=== PATIENT | female | born 1995 | race Caucasian/White ===

== ENCOUNTER 2020-11-26 08:37 | Day surgery (SDC) | payer OTHER ==
[2020-11-19 11:07] LABS: BASOPHILS % (AUTO) 0.6 % (0-1); EOSINOPHILS # (AUTO) 0.1 X10'3 (0-0.9); EOSINOPHILS % (AUTO) 1.3 % (0-6); LYMPHOCYTES # (AUTO) 1.7 X10'3 (1.1-4.8); LYMPHOCYTES % (AUTO) 22.2 % (21-51); MEAN CORPUSCULAR HEMOGLOBIN 29.2 PG (27.0-31.0); MEAN CORPUSCULAR HGB CONC 34.2 g/dL (33.0-36.5); MEAN CORPUSCULAR VOLUME 85.5 FL (78-98); MEAN PLATELET VOLUME 6.9 FL (7.4-10.4); MONOCYTES # (AUTO) 0.4 X10'3 (0-0.9); MONOCYTES % (AUTO) 5.4 % (2-12); NEUTROPHILS # (AUTO) 5.5 X10'3 (1.8-7.7); NEUTROPHILS % (AUTO) 70.5 % (42-75); PRE OP HEMATOCRIT 37.3 % (35.0-45.0); PRE OP HEMOGLOBIN 12.7 g/dL (12.0-16.0); PRE OP PLATELET COUNT 446 X10'3 (140-440); RED BLOOD COUNT 4.36 X10'6 (4.20-5.60); RED CELL DISTRIBUTION WIDTH 13.3 % (11.5-14.5)
[2020-11-19 11:24] LABS: ALANINE AMINOTRANSFERASE 29 U/L (12-78); ALBUMIN 3.9 G/DL (3.4-5.0); ALKALINE PHOSPHATASE 90 IU/L (46-116); ANION GAP 8 (8-16); ASPARTATE AMINO TRANSFERASE 16 U/L (10-37); BETA HCG,QUANTITATIVE < 1.0 mIU/ml; BILIRUBIN,TOTAL 0.5 MG/DL (0.1-1.0); BLOOD UREA NITROGEN 13 MG/DL (7-18); BUN/CREATININE RATIO 18.8 (6.6-38.0); CALCIUM 9.2 MG/DL (8.5-10.1); CHLORIDE 104 MMOL/L (99-107); CREATININE 0.69 MG/DL (0.40-0.90); GLUCOSE 84 MG/DL (70-104); SODIUM 142 MMOL/L (135-145); TOTAL CARBON DIOXIDE 30.1 MMOL/L (24-32); TOTAL PROTEIN 7.9 G/DL (6.4-8.2); eGFR > 90 ML/MIN
[~2020-11-26] VITALS: Ht 165.1 cm; Wt 97.5 kg
[2020-11-26] VITALS (8 sets, daily range): BP systolic 114–128; BP diastolic 68–91
[~2020-11-26 08:37] MED LIST: CHOL20004 PO; INDOCYANINE GREEN 25 MG/10 ML VIAL IV ONE; SYN0.088T PO; ceFAZolin 2gm in dextrose, iso 50 ML IV ONE; famotidine 20mg tablet PO ONE; ringers solution, lacted 1,000 ML IV SCH
[2020-11-26] MEDS ORDERED: morphine 4 MG/ML inj SYRINge IV PRN (09:15)
[2020-11-26] MEDS ORDERED: fentaNYL/PF 50MCG/1 ML 2ML syringe IV PRN ×2 (09:15)
[2020-11-26] MEDS ORDERED: labetalol 20mg/4ml (5mg/ml) syringe IV PRN (09:15)
[2020-11-26] MEDS ORDERED: ringers solution, lacted 1,000 ML IV SCH (09:15)
[2020-11-26] MEDS ORDERED: morphine 2 MG/ML inj. syringe IV PRN (09:15)
[2020-11-26] MEDS ORDERED: ondansetron/PF 4mg/2ml inj IV PRN (09:15)
[2020-11-26] MEDS ORDERED: hydrALAZINE 20mg/ml inj. IV PRN (09:15)
[2020-11-26] MEDS ORDERED: LIDOcaine 1% 30ml preserv. free vial ONE (10:53)
[2020-11-26] MEDS ORDERED: BUPIVAcaine/PF 2.5 mg/ml (0.25%) 30ml vial ONE (10:53)
[2020-11-26] MEDS ORDERED: fentaNYL/PF 50MCG/1 ML 2ML syringe ONE (11:02)
[2020-11-26] MEDS ORDERED: midazolam 2 mg/2 ml injection ONE (11:03)
[2020-11-26] MEDS ORDERED: LIDOcaine 2% (20mg/ml) 5ml vial ONE (11:11)
[2020-11-26] MEDS ORDERED: rocuronium 10mg/ml inj IV ONE (11:12)
[2020-11-26] MEDS ORDERED: propofol inj 20 ML IV ONE (11:12)
[2020-11-26] MEDS ORDERED: ondansetron/PF 4mg/2ml inj ONE (11:13)
[2020-11-26] MEDS ORDERED: dexamethasone sod phosphate 4mg/ml inj. ONE (11:14)
[2020-11-26] MEDS ORDERED: glycopyrrolate 0.2mg/ml inj ONE (11:15)
--- NOTE | 2020-11-26 12:15 | NUR ---
Received from OR via [facility] , accompanied by Anesthesiologist DR VALDEZ and report given by Anesthesiolgist. PATIENT AWAKE AND PLEASANT, NO C/O PAIN, DENIES N/V, V/S WNL, NEUROVASCULAR CHECKS INTACT, 20G PIV L WRIST, SCD ON, 3 BANDAIDS TO LAP SITES OF ABDOMEN-NO DRAINAGE, CDI.
[2020-11-26] MEDS ORDERED: HYDROcodone/acetaminophen 5mg/325mg tablet PO PRN (12:25)
[2020-11-26] MEDS ORDERED: HYDROcodone/acetaminophen 10/325mg tab PO PRN (12:25)
--- NOTE | 2020-11-26 13:25 | NUR ---
PATIENT A&OX4, DENIES PAIN, V/S WNL, NEUROVASCULAR CHECKS INTACT, 20G PIV LUE D/C, SCDS OFF, 3 BANDAIDS TO LAP SITES OF ABDOMEN-CDI. I HAVE REVIEWED D/C INSTRUCTIONS WITH PATIENT AND HAS VERBALIZED UNDERSTANDING, WRITTEN RX FOR PAIN MEDS GIVEN TO PT. PATIENT D/C HOME WITH ALL BELONGINGS AND FAMILY GAVE TRANSPORT.
== END 2020-11-26 13:25 | disposition home or self-care (01) ==
LOC: PAS 08:37
PROVIDERS: ATTEND Surgery
DX: K80.10 Calculus of gallbladder with chronic cholecystitis without obstruction (principal); Z79.899 Other long term (current) drug therapy; E03.9 Hypothyroidism, unspecified; R10.9 Unspecified abdominal pain
CPT/HCPCS: 36415; 47563; 80053; 82948; 84702; 85025; 87635; J1100; J2001; J2250; J2405; J2704; J3010; J3490; J7120; A4215; A4618; A7000